=== PATIENT | male | born 1970 | race Caucasian/White ===

== ENCOUNTER → 2024-08-31 07:35 | Outpatient (REF) | payer OTHER, SELFPAY | LOC: HWRAD 07:35 | PROVIDERS: ATTENDING PHYSICIAN Internal Medicine | DX: R10.32 Left lower quadrant pain (principal); Z87.891 Personal history of nicotine dependence | CPT/HCPCS: 71271; 74177; Q9967 ==

== ENCOUNTER 2025-04-16 06:26 | Day surgery (SDC) | payer OTHER, SELFPAY | END 2025-04-16 12:13 | disposition home or self-care (01) | LOC: GI 06:26 | PROVIDERS: ATTENDING PHYSICIAN Internal Medicine Gastroenterology; FAMILY PHYSICIAN Internal Medicine | DX: K50.80 Crohn's disease of both small and large intestine without complications (principal); D12.3 Benign neoplasm of transverse colon; K57.30 Diverticulosis of large intestine without perforation or abscess without bleeding; K62.1 Rectal polyp | CPT/HCPCS: 45385; 45380; 88305 ==